=== PATIENT | male | born 1940 | race Caucasian/White ===

== ENCOUNTER 2017-03-23 15:10 | Emergency (ER) | payer MEDICARE, OTHER ==
[2017-03-23] MEDS ORDERED: Sodium Chloride 0.9% 10 ML Syringe FLUSH PRN (15:42)
[2017-03-23] MEDS ORDERED: Ondansetron 4 MG/2 ML SDV IVPUSH ONE (15:42)
[2017-03-23] MEDS ORDERED: Sodium Chloride 0.9% 1,000 ML IV ONE (15:42)
[2017-03-23] MEDS ORDERED: dimenhyDRINATE 50 MG/ML SDV IVPUSH ONE (15:43)
[2017-03-23] MEDS ORDERED: LORazepam 2 MG/ML MDV IVPUSH ONE (15:52)
[2017-03-23 16:41] LABS: CHLORIDE,CL 104 mmol/L (98-107); SODIUM,NA 138 mmol/L (136-145)
[2017-03-23 17:00] VITALS: BP 118/77
--- NOTE | 2017-03-24 08:25 | ER ---
Date of Service: 03/23/2017 SUBJECTIVE: Jimmie presents to the emergency room with complaints of lightheadedness and near-syncope. The patient states that he has a problem with recurrent vertigo and has been worked up for this including a CT scan and MRI of his brain. He has been referred to physical therapy and has undergone vestibular treatment for this with little improvement in his symptoms. He states that his symptoms did not respond to dimenhydrinate or meclizine. The patient states that he was out in his garage today and became lightheaded. He subsequently went into the house and then went back out to his garage. He bent over to pickup something off the floor when he became lightheaded and subsequently stumbled and fell onto a side onto the ground. He states that he did not strike his head in the event. The patient initially stated that he was not experiencing any chest pain or shortness of breath, but he began complaining of this after being in the emergency room. He states that he has not been worked up for Cardiology standpoint for his lightheadedness or vertigo. The patient states that he is quite nauseated and has been dry heaving. He denies any palpitations. PAST MEDICAL HISTORY: 1. Recurrent vertigo. 2. Hypertension. 3. Dyslipidemia. MEDICATIONS: 1. Lipitor 40 mg at bedtime. 2. Lisinopril 20 mg daily. 3. Aspirin 81 mg daily. ALLERGIES: To wool. REVIEW OF SYSTEMS: General: No fever or chills. HEENT: No sore throat, rhinorrhea, or congestion. Respiratory: No shortness of breath. Cardiac: Denies any substernal chest pain. No jaw, arm, neck, or back pain. Gastrointestinal: Complains of nausea and dry heaving but no vomiting. Denies any diarrhea. No melena, hematochezia, or hematemesis. Genitourinary: Denies any dysuria. Musculoskeletal: No myalgias or arthralgias per neurologic. Please see history of present illness. He does complain of spinning type vertigo, particularly when he moves his head rapidly. PHYSICAL EXAMINATION: General: This is a 77-year-old male patient, who is in no acute distress. Vital Signs: Blood pressure is 142/76, pulse rate 62, temperature is 36.1, respiratory rate 16, and O2 saturations 98%. Skin: Warm, pink, and dry. HEENT: Head is normocephalic, atraumatic. Eyes, PERRLA. Extraocular movements are intact. He does have a right beating horizontal nystagmus. Ears, TMs are clear. Mouth, oral mucosa is moist. No erythema or exudate noted in the hypopharynx. NECK: Supple. No masses. There is no lymphadenopathy. Lungs: Clear to auscultation. Heart: Regular rate and rhythm. Abdomen: Soft, nontender. There is no hepatosplenomegaly noted. There are no masses noted. Extremities: Without edema. Neurologic: He is alert and oriented and answers all questions appropriately. His speech is fluent. His Romberg is positive. He has no pronator drift. Cranial nerves II through XII are intact. LABORATORY DATA: WBCs 7.9, hemoglobin is 16.7, and platelets are 137. Chemistry; sodium is 138, potassium is 4.4, chloride is 104, bicarb is 25, BUN is 14, creatinine is 1.4, GFR is 49, glucose is 123, calcium is 8.7, corrected calcium is 8.94. Total bilirubin is 0.6, AST is 26, ALT is 28, alkaline phosphatase is 59, CK is 123, CK-MB is 2.4, troponin is less than 0.017. C- reactive protein is less than 0.2. TSH is 1.637. A 12-lead EKG was obtained which showed what appeared to be approximately 1 [address]-elevation in leads V2 and V3 as well as leads II and aVF. EMERGENCY ROOM COURSE: I did fax the EKG to [facility] to have them evaluate the EKG if he did not have 1 on file for comparison. The mentally impaired teacher felt as though the EKG findings were consistent with ST-elevation myocardial infarction, a STEMI code was subsequently called. Ambulance was immediately called. The patient was given Plavix 300 mg p.o., 4000 units of heparin bolus, and aspirin 324 mg p.o. The patient was continuing to experience chest discomfort at the time of transfer. Cardiology did contact us back after he had received the above medications, stating that they did have a comparison EKG which showed similar findings of ST change and decision was made and subsequently was told to speak with the hospitalist on-call who is Dr. Gardner. She accepted the patient in transfer. ASSESSMENT: 1. Near syncope. 2. Chest pain. PLAN: Again, the patient was transferred and will be directly admitted. He will not be going directly to the heart catheterization lab. He will be transported by [facility] ground ambulance. All questions were answered. MWK: 03/23/2017 18:01:57 MODL: 03/23/2017 18:46:06 /[id number]
== END 2017-03-23 17:00 | disposition short-term general hospital (02) ==
LOC: VM.ED 15:10
DX: R55 Syncope and collapse (principal); R07.9 Chest pain, unspecified; I10 Essential (primary) hypertension; E78.5 Hyperlipidemia, unspecified; Z79.899 Other long term (current) drug therapy
CPT/HCPCS: 36415; 80053; 82550; 82553; 84443; 84484; 85025; 86140; 93005; 96361; 96374; 96375; 99285; J2060; J2405; J7030; 99284-GF

== ENCOUNTER 2017-05-15 08:13 | Observation (INO) | payer MEDICARE, OTHER ==
[2017-05-15 09:24] LABS: CHLORIDE,CL 107 mmol/L (98-107); SODIUM,NA 142 mmol/L (136-145)
[2017-05-15] MEDS ORDERED: Sodium Chloride 0.9% 10 ML Syringe FLUSH PRN (10:01)
[2017-05-15 17:26] VITALS: BP 129/80
--- NOTE | 2017-05-18 08:59 | ER ---
Date of Service: 05/15/2017 SUBJECTIVE: Jimmie presents to the emergency room with complaints of vertigo and chest pain. The patient has a long-standing history of vertigo and has been evaluated by Neurology. He has had workups including CT scan and MRI of his brain and has also been evaluated by Physical Therapy and diagnosed with benign positional vertigo. The patient also has a history of coronary artery disease and underwent a 2 vessel CABG in February. He states that overall he has been feeling well since undergoing that surgery and states that he was taken off his Coumadin on Thursday. The patient states that he has noticed some chest discomfort over the past 24 hours as well. He states that he has not noticed any discomfort into his arms, jaw, neck, or back. PAST MEDICAL HISTORY: 1. Coronary artery disease. 2. Benign positional vertigo. 3. Hypertension. 4. Dyslipidemia. MEDICATIONS: 1. Aspirin 325 mg daily. 2. Metoprolol tartrate 25 mg p.o. b.i.d. 3. Lipitor 40 mg at bedtime. ALLERGIES: To wool. REVIEW OF SYSTEMS: General: No fever, chills, or recent illness. HEENT: No sore throat, rhinorrhea, or congestion. Respiratory: No shortness of breath. Cardiac: Please see history of present illness. GI: No nausea, vomiting, or diarrhea. No melena, hematochezia, or hematemesis. : Denies any dysuria. Musculoskeletal: No myalgias or arthralgias. Neurologic: No fainting, blackouts, or lightheadedness. PHYSICAL EXAMINATION: General: This is a 77-year-old male patient, who is in no acute distress. Vital Signs: Blood pressure is 122/71, heart rate 64, temperature is 35.5, respiratory rate 16, and O2 saturations 94%. Skin: Warm, pink, and dry. Lungs: Clear to auscultation. Heart: Regular rate and rhythm. Normal S1, S2. No S3, S4, murmurs, clicks, or rubs. Abdomen: Soft, nontender. There is no hepatosplenomegaly or masses noted. Extremities: Without edema. Neurologic: The patient is alert, oriented, answers all questions appropriately. His speech is fluent. His gait is within normal limits. He has no nystagmus noted. Unable to reproduce the vertigo, he was complaining about with manipulation of the head. DIAGNOSTIC DATA: A 12-lead EKG was obtained, which did show some chronic ST changes in the inferior leads. I did fax this to [facility] and they felt as though the EKG was unchanged. LABORATORY DATA: WBC is 5.7, hemoglobin is 12.7, platelets are 162. Coags, PT is 12.6, INR is 1.1. Chemistry, sodium is 142, potassium is 4.0, chloride is 107, bicarb is 26, BUN is 13, creatinine is 1.1, creatinine clearance is 56.14, glucose is 101, calcium is 8.4, corrected calcium is 8.8, total bilirubin is 0.7. AST is 18, ALT is 20, alkaline phosphatase is 73, CK is 76, troponin is less than 0.017. EMERGENCY ROOM COURSE: The patient did have another episode of chest discomfort that resolved on its own. His EKG was repeated and did not reveal any acute change. Remainder of his physical examination is within normal limits. ASSESSMENT: 1. Acute on chronic vertigo. 2. Substernal chest pain. PLAN: Again I did speak with Cardiology and they felt this patient did not need to be evaluated at [facility] and did not need to go any intervention at this point. They advised either discharging him or admitting him on observation status for 6 hours with repeat troponin and EKG. I subsequently did discuss this with the patient. They did agree to admission. The patient will be admitted on observation status under my service. I did speak with Louise Franklin regarding this patient. He is a code level 1. MWK: 05/15/2017 11:21:59 MODL: 05/15/2017 19:30:27 /[id number]
--- NOTE | 2017-05-18 09:04 | DISCH ---
ADMITTING PROVIDER: Mahin Ventura PA-C. DISCHARGING PROVIDER: Mahin Ventura PA-C. ADMITTING DIAGNOSES: 1. Chest pain. 2. Acute on chronic vertigo. DISCHARGE DIAGNOSES: 1. Chest pain. 2. Acute on chronic vertigo. SUBJECTIVE: The patient was admitted earlier today with chest pain for serial troponins and observation. He had no recurrence of his chest discomfort and his repeat troponins were negative. The patient had underwent 2 vessel coronary artery bypass graft at the end of February and presented to the emergency room with some vertigo and chest pain. He has been dealing with this vertigo for approximately a year and is felt that the chest discomfort and vertigo are not related. Overall, the patient is feeling well, again has not had any recurrence of his chest pain and is not experiencing any lightheadedness or shortness of breath. PHYSICAL EXAMINATION: General: This is a 77-year-old male patient, in no acute distress. Vital Signs: Blood pressure is 129/80, heart rate 59, temperature is 36.7, respiratory rate is 16, and O2 saturations 95%. Skin: Warm, pink, and dry. HEENT: Mouth, oral mucosa is moist. Lungs: Clear to auscultation. Heart: Regular rate and rhythm. Abdomen: Soft and nontender. There is no hepatosplenomegaly noted. There is no masses noted. Extremities: Without edema. Neurologic: The patient is alert, oriented, and answers all questions appropriately. He has no weakness in his upper or lower extremities. No difficulties with speech or ambulation and currently is not experiencing any vertigo at discharge. LABORATORY DATA: Please see admission H and P. Again his repeat troponins were less than 0.017 at 2 o'clock this afternoon and also at 7 o'clock this evening. DISCHARGE CONDITION: Good. FOLLOWUP: Again I did speak with Louise Franklin, regarding this patient and we will have him follow up with her in the clinic next week. I did discuss the ideology of his vertigo extensively numerous times during his stay and in subsequent visits to the emergency room. The patient and his are extremely anxious and upset that there is nothing that is helping with his symptoms. Again physical therapy has not been successful, but he has not seen them for vestibular therapy since last fall, so I think it is worth possibly doing another course of vestibular physical therapy to see if this is helpful. He is to return to the emergency room if he develops any recurrence of his chest pain or if he develops any shortness of breath, lightheadedness or palpitations. DISCHARGE MEDICATIONS: 1. Aspirin enteric-coated 325 mg daily. 2. Metoprolol tartrate 25 mg p.o. b.i.d. 3. Lipitor 40 mg p.o. at bedtime. MWK: 05/15/2017 20:42:04 MODL: 05/16/2017 18:12:26 /[id number]
--- NOTE | 2017-05-18 09:04 | ER ---
Date of Service: 05/15/2017 SUBJECTIVE: Jimmie presents to the emergency room with complaints of vertigo and chest pain. The patient has a long-standing history of vertigo and has had an extensive workup for this including CT scans and MRI of his brain. He has been evaluated by Neurology and has had referrals to PT for vestibular therapy. So far, he has continued to have intermittent symptoms of vertigo that have not been palliated with medications such as Dramamine, meclizine, or Benadryl. He is the patient of Louise Franklin and she has been working with the patient for approximately a year for this vertigo. The patient presented to the emergency room with lightheadedness and vertigo in February and was found to have some ST changes. He was subsequently sent to [facility] in [place] for initially what was thought to be an ST-elevation myocardial infarction. The EKGs were compared to an old EKG however and he was found to have no change in his EKG. He did subsequently undergo angiogram and was found to have blockage in 2 of his coronary arteries requiring coronary artery bypass grafting. The patient states that he has been much more active in the last several weeks and he thinks that this chest pain that he began experiencing is the result of that. He states that the discomfort is intermittent in nature and it does not radiate and is not associated with any shortness of breath. The patient was seen by his spanish literature professor on Thursday at a clinic appointment and was found to be doing well. He states that the vertigo returned yesterday. He did have an appointment with Louise Franklin this morning but they elected to come to the emergency room instead. PAST MEDICAL HISTORY: 1. Recurrent vertigo. Please see history of present illness. 2. Hypertension. 3. Dyslipidemia. 4. Coronary artery disease, status post 2-vessel CABG. MEDICATIONS: 1. Aspirin 225 mg daily. 2. Metoprolol tartrate 25 mg p.o. b.i.d. 3. Lipitor 40 mg at bedtime. ALLERGIES: To wool. REVIEW OF SYSTEMS: General: Denies any fever or chills. HEENT: No sore throat, rhinorrhea, or congestion. Respiratory: No shortness breath. Cardiac: Lease see history of present illness. GI: No nausea, vomiting, or diarrhea. No melena, hematochezia, or hematemesis. : Denies any dysuria. Musculoskeletal: No myalgias or arthralgias. Neurologic: Please see history of present illness. He does complain of intermittent spinning type vertigo that he has been experiencing intermittently throughout the day. He denies any numbness or tingling in his extremities. No difficulties with speech or ambulation. PHYSICAL EXAMINATION: General: A 77-year-old male patient in no acute distress. Vital Signs: Heart rate is 58, blood pressure is 126/81, respiratory rate is 16, O2 saturation is 97%, temperature is 36.2. Skin: Warm, pink, and dry. HEENT: Mouth, oral mucosa is moist. Neck: No JVD noted. Lungs: Clear to auscultation. Heart: Regular rate and rhythm. Abdomen: Soft, nontender. There is no hepatosplenomegaly noted. There is no masses noted. Extremities: Without edema. Neurologic: Cranial nerves II through XII are intact. His speech is fluent. His gait is within normal limits. No nystagmus is noted. No other focal neuro symptoms noted. LABORATORY DATA: WBCs 5.7, hemoglobin is 12.7, platelets are 162. Coags: PT is 12.6, INR is 1.1. Chemistry: Sodium is 142, potassium is 4.0, chloride is 107, bicarb is 26, BUN is 13, creatinine is 1.1. Creatinine clearance is 56.14. GFR is greater than 60. Glucose is 101, calcium is 8.4, corrected calcium is 8.88, total bilirubin is 0.7, AST is 18, ALT is 20, alkaline phosphatase is 73, CK is 76, CK-MB is 0.8. Troponin is less than 0.017. Total protein is 6.7, albumin is 3.4. EMERGENCY ROOM COURSE: A 12-lead EKG was obtained and did not reveal any acute ST or T-wave changes. They were unchanged from his previous EKGs. PA and lateral chest x-ray was obtained. There was no evidence of any acute infiltrate. ASSESSMENT: 1. Acute on chronic vertigo. 2. Intermittent chest pain. PLAN: The patient will be admitted on observation status. I did speak with Louise Franklin regarding this patient and she requested that I admit the patient. The patient is a code level 1. We will do serial troponins, and discharge in the evening. I do not feel that his vertigo and chest pain are related. They appear to be 2 separate issues. All questions were answered. MWK: 05/15/2017 20:30:49 MODL: 05/16/2017 03:16:45 /[id number]
--- NOTE | 2017-05-20 11:50 | ER ---
Date of Service: 05/15/2017 ADDENDUM: This patient's ER note can be used as his admission H and P. MWK: 05/20/2017 07:42:00 MODL: 05/20/2017 07:49:25 /[id number]
== END 2017-05-15 19:45 | disposition home or self-care (01) ==
LOC: VM.ED 08:13 → VM.MS 09:58
PROVIDERS: ADMIT Physician Assistant; ATTEND Physician Assistant
DX: R07.2 Precordial pain (principal); R42 Dizziness and giddiness; I25.10 Atherosclerotic heart disease of native coronary artery without angina pectoris; I10 Essential (primary) hypertension; E78.5 Hyperlipidemia, unspecified; Z95.1 Presence of aortocoronary bypass graft; Z79.82 Long term (current) use of aspirin; Z79.899 Other long term (current) drug therapy; Z98.890 Other specified postprocedural states
CPT/HCPCS: 36415; 71010; 80053; 82550; 82553; 84484; 85025; 85610; 93005; 99285; G0378; 99236

== ENCOUNTER 2019-05-26 06:47 | Day surgery (SDC) | payer MEDICARE, OTHER ==
[2019-05-26] MEDS ORDERED: Lactated Ringers 1,000 ML IV SCH (07:00)
[2019-05-26] MEDS ORDERED: Propofol 200 MG/20 ML SDV ONE (08:13)
[2019-05-26] MEDS ORDERED: fentaNYL 100 MCG/2 ML SDV ONE (08:13)
[2019-05-26 10:46] VITALS: BP 146/88; PULSE 64
--- NOTE | 2019-05-26 14:39 | OR ---
DATE OF SURGERY: 05/26/2019. REFERRING PROVIDER: Louise Franklin MD. PRE-OPERATIVE DIAGNOSIS: History of colon polyps. The patient had previous cecal polyp with high-grade dysplasia and required right-sided colectomy back in 2014. He did have followup colonoscopy in [address] Rosales, which was normal. He presents today for 3-year followup. POST-OPERATIVE DIAGNOSES: 1. 2 small polyps removed using cold forceps. a. 2 mm at 15 cm. b. 3 mm rectal polyp. 2. Normal right-sided anastomosis site. 3. Moderate left-sided diverticulosis. PROCEDURE: Colonoscopy with polypectomy x2 using cold forceps. SURGEON: Kanu Castillo M.D. ANESTHESIA: Monitored anesthesia care. BOWEL PREP: Good. Jimmie is a 79-year-old male who was brought to the endoscopy suite after discussing risks and benefits of the procedure. Informed consent was obtained for conscious sedation and colonoscopy with or without biopsy and/or polypectomy. We also discussed possibility of missed lesions. Pre-procedure exam was unremarkable. IV, oxygen, and monitors were placed. The patient was placed in the left lateral decubitus position. Sedation was administered and a digital rectal exam was performed and was remarkable for [id number] prostate enlargement. I did not feel any palpable nodules. Colonoscope was passed into the rectum and slowly advanced all the way to the right-sided anastomosis site. The anastomosis site was normal in appearance. The colonoscope was slowly withdrawn and the mucosa was closed observed in a direct circumferential manner. The remainder of the ascending colon was unremarkable. The transverse colon was unremarkable. The descending colon and sigmoid colon did reveal some moderate diverticulosis. Retroflexion was performed and rectal mucosa revealed 2 mm polyp at 15 cm and 3 mm polyp in the rectal pouch, both removed using cold forceps. Scope was removed. The patient tolerated the procedure well. The patient was monitored until that baseline status. Discharge instructions were reviewed and the patient was discharged in good condition. COMPLICATIONS: None. TOTAL TIME: 20 minutes. ESTIMATED BLOOD LOSS: About 1 mL. RECOMMENDATIONS/FOLLOW-UP: We will await results of path report to determine ideal followup interval. I will have the patient hold his aspirin and Coumadin for about 3 days to limit any chance of bleeding. I would like to kindly thank Louise Franklin for this referral. DMB: 05/26/2019 10:03:04 MODL: 05/26/2019 14:31:34 /[id number]
== END 2019-05-26 11:15 | disposition home or self-care (01) ==
LOC: VM.SDS 06:47
PROVIDERS: ATTEND Family Medicine
DX: Z12.11 Encounter for screening for malignant neoplasm of colon (principal); D12.8 Benign neoplasm of rectum; K63.5 Polyp of colon; K57.30 Diverticulosis of large intestine without perforation or abscess without bleeding; I11.0 Hypertensive heart disease with heart failure; I50.9 Heart failure, unspecified; I25.10 Atherosclerotic heart disease of native coronary artery without angina pectoris; I25.2 Old myocardial infarction; I48.91 Unspecified atrial fibrillation; I25.5 Ischemic cardiomyopathy; I48.92 Unspecified atrial flutter; N40.1 Benign prostatic hyperplasia with lower urinary tract symptoms; Z90.49 Acquired absence of other specified parts of digestive tract; Z95.1 Presence of aortocoronary bypass graft; Z86.010 Personal history of colon polyps; Z79.01 Long term (current) use of anticoagulants; Z79.82 Long term (current) use of aspirin; Z79.899 Other long term (current) drug therapy; Z91.09 Other allergy status, other than to drugs and biological substances
CPT/HCPCS: 00811; 36415; 45380; 85610; 88305; J2704; J3010; J7120

== ENCOUNTER 2022-10-06 13:36 | Emergency (ER) | payer OTHER, MEDICARE ==
[2022-10-06 14:15] LABS: SODIUM,NA 133 mmol/L (138-146)
[2022-10-06 14:32] LABS: ANION GAP 14.9 mmol/L (7-16); CHLORIDE,CL 100 mmol/L (98-107)
[2022-10-06 14:33] LABS: ESTIMATED GFR 71 mL/min (>=60)
[2022-10-06 15:29] VITALS: BP 128/78; PULSE 80
== END 2022-10-06 15:40 | disposition home or self-care (01) ==
LOC: VM.ED 13:36
DX: U07.1 COVID-19 (principal); E78.00 Pure hypercholesterolemia, unspecified; I10 Essential (primary) hypertension; Z79.899 Other long term (current) drug therapy; Z88.8 Allergy status to other drugs, medicaments and biological substances
CPT/HCPCS: 36415; 80053; 83605; 83735; 84100; 84145; 85025; 99284

== ENCOUNTER 2024-02-08 10:36 | Emergency (ER) | payer OTHER, MEDICARE ==
[2024-02-08] MEDS: Lidocaine 1% 30 ML SDV INJECT ONE (10:50)
[2024-02-08] MEDS: Diphtheria,Pertussis(Acell),Tetanus Vaccine 0.5 ML Syringe IM ONE (11:21)
[2024-02-08 11:45] VITALS: BP 128/87; PULSE 67
== END 2024-02-08 11:31 | disposition home or self-care (01) ==
LOC: VM.ED 10:36
DX: S61.012A Laceration without foreign body of left thumb without damage to nail, initial encounter (principal); Z23 Encounter for immunization; I10 Essential (primary) hypertension; I25.2 Old myocardial infarction; I25.10 Atherosclerotic heart disease of native coronary artery without angina pectoris; Z91.048 Other nonmedicinal substance allergy status; Z79.82 Long term (current) use of aspirin; Z79.01 Long term (current) use of anticoagulants; Z79.899 Other long term (current) drug therapy; Z90.49 Acquired absence of other specified parts of digestive tract; W26.8XXA Contact with other sharp object(s), not elsewhere classified, initial encounter
CPT/HCPCS: 12001; 73140-FA; 90471; 90715; 99283; 99283-25; J3490